=== PATIENT | female | born 1995 | race Caucasian/White ===

== ENCOUNTER 2021-02-11 20:35 | Emergency (ER) | payer OTHER ==
[~2021-02-11] VITALS: Ht 154.9 cm; Wt 63.0 kg
[2021-02-11 20:46] VITALS: BP 115/75
--- NOTE | 2021-02-11 21:05 | NUR ---
25 Y/O FEMALE BIB SELF C/O RT BIG TOE PAIN X5 DAYS. PT STATES 5/10 SHARP PAIN, TENDER TO TOUCH, REPORTS WARM TO TOUCH. REPORTS BLOOD AND CLEAR DISCHARGE. TAKING IBUPROFEN WITH NO RELIEF MEDHX: DENIES NKA
[2021-02-11] MEDS ORDERED: LIDOCAINE 2% 1000 MG/50 ML VIAL INJ ONE (22:25)
[2021-02-11] MEDS ORDERED: CEPH-588 PO (23:28)
--- NOTE | 2021-02-11 23:29 | NUR ---
Pt report given to AMRITA PINO. Transfer of care at this time.
[2021-02-11 23:43] VITALS: BP 115/75
== END 2021-02-11 23:43 | disposition home or self-care (01) ==
LOC: MED 20:35
DX: L60.0 Ingrowing nail (principal); L03.031 Cellulitis of right toe; Z79.899 Other long term (current) drug therapy
CPT/HCPCS: 11730; 99284; J2001

== ENCOUNTER 2021-02-14 13:03 | Emergency (ER) | payer OTHER ==
[~2021-02-14] VITALS: Ht 154.9 cm; Wt 61.7 kg
[~2021-02-14 13:03] MED LIST: CEPH-588 PO
[2021-02-14 13:15] VITALS: BP 97/60
--- NOTE | 2021-02-14 13:20 | NUR ---
BIB SELF FOR WOUND CHECK. SEEN HERE FOR INGROWN TOENAIL X2 DAYS AGO. 08/20 PAIN.
--- NOTE | 2021-02-14 15:03 | NUR ---
pt verbalizes dc instructions no acute distress noted. stable on dc.
[2021-02-14 15:04] VITALS: BP 109/70
== END 2021-02-14 15:04 | disposition home or self-care (01) ==
LOC: MED 13:03
DX: S91.209D Unspecified open wound of unspecified toe(s) with damage to nail, subsequent encounter (principal); Z48.00 Encounter for change or removal of nonsurgical wound dressing; X58.XXXD Exposure to other specified factors, subsequent encounter
CPT/HCPCS: 99282